=== PATIENT | male | born 1965 | race Caucasian/White ===

== ENCOUNTER 2022-01-09 10:12 | Observation (INO) ==
[2022-01-09] MEDS ORDERED: METOPROLOL TARTRATE 1 MG/ML VIAL IV STA (11:25)
[2022-01-09] MEDS ORDERED: SODIUM CHLORIDE 0.9% 1000ML 1,000 ML IV ONE (11:25)
[2022-01-09 11:32] LABS: Basophils # (auto) 0.03 K/uL (0-0.2); Basophils % (auto) 0.3 %; Eosinophils # (auto) 0.07 K/uL (0-0.5); Eosinophils % (auto) 0.8 %; Hematocrit (blood only) 44.4 % (42-52); Hemoglobin 15.4 g/dL (14.0-18.0); Immature Granulocytes # (auto) 0.04 K/uL (0.00-0.02); Immature Granulocytes % (auto) 0.5 %; Lymphocytes # (auto) 2.59 K/uL (1.2-3.4); Lymphocytes % (auto) 29.2 %; Mean Corpuscular Hemoglobin 29.8 pg (25-34); Mean Corpuscular Hgb Conc 34.7 g/dL (32-36); Mean Corpuscular Volume 85.9 fL (80-100); Mean Platelet Volume 10.6 fL (7.4-10.4); Monocytes # (auto) 0.63 K/uL (0.11-0.59); Monocytes % (auto) 7.1 %; Neutrophils # (auto) 5.52 K/uL (1.4-6.5); Neutrophils % (auto) 62.1 %; Platelet Count 273 K/uL (130-400); RDW Coefficient of Variation 13.1 % (11.5-14.5); RDW Standard Deviation 41.1 fL (36.4-46.3); Red Blood Count 5.17 M/uL (4.7-6.1); White Blood Count 8.88 K/uL (4.8-10.8)
[2022-01-09 12:01] LABS: D Dimer 320 ug/L FEU (0-500); Partial Thromboplastin Ratio 0.8; Partial Thromboplastin Time 22.9 Seconds (21.0-31.0); Prothrombin Time 10.5 Seconds (9.0-12.0)
--- NOTE | 2022-01-09 12:03 | XRay Report ---
XR chest 1V portable HISTORY: Cough with midsternal Chest Pain COMPARISON: Chest 08/22/2015. FINDINGS: There are low lung volumes, unchanged. No pneumothorax. No pleural effusions. The correct s ilhouette remains top normal in size. Small left basilar linear densities favor subsegmental atelecta sis or scarring. Otherwise, no focal lung consolidations to suggest pneumonia. No evidence for pulmon rosemary edema. IMPRESSION: No significant change compared to the prior study. No acute process. ACT 112: Negative or not required by law. Electronically signed by: Eduardo Ruano M.D. 01/09/2022 12:02 PM
[2022-01-09 12:09] LABS: Troponin I High Sensitivity 8.1 pg/ml (0-20)
[2022-01-09 12:21] LABS: Albumin Globulin Ratio 1.1 (0.9-2); Albumin Level 4.2 gm/dl (3.4-5.0); BUN Creatinine Ratio 10.3 (10-20); Bilirubin,Total 0.8 mg/dl (0.2-1.0); Calcium 9.9 mg/dl (8.5-10.1); Creatinine Clr Calc Pharmacy 74.2 ml/min; Est GFR (African American) 73.9 ml/min; Est GFR (Non-African American) 63.8 ml/min; Globulin 3.7 gm/dl (2.5-4.0); Potassium 3.4 mmol/L (3.5-5.1); Total Protein 7.9 gm/dl (6.0-8.3)
--- NOTE | 2022-01-09 15:02 | History & Physical Report ---
Date of Service January 09, 2022 Assessment & Plan (1) Chest pain: Plan: chest pain with a feeling of pressure with presentation of afib RVR, will have serial enzymes, initial trop negative and ecg with afib not acs, resting echo today stress 01/10/22 if enzymes are negative and agreed on by daytime team Personally spoke to cardiology if enzymes go up consider cardiology consult for interventional cardiac catheterization continue aspirin lipids in am patient typically takes Zocor 20 which was not initially on his med list risk factors of htn (2) Atrial fibrillation: Plan: seems to have converted to nsr on er will need workup for chest pain although the hear rates of 132 documented are close to the 140 rate which would be 85% of Max predicted heart rate of 220-age. will stay po metoprolol and hold losartan consider anticoagulation once acs has been ruled out so as not to complicate anticoagulation if left heart cath is required (3) Hypertension: Plan: typically on losartan hctz, these are held in favor of metoprolol Plan: heparin for dvt prevention History of Present Illness Primary Care Provider: Pam Fields 56-year-old male presents in atrial fibrillation rapid ventricular response. This is with the patient being aware that his heart was racing or palpitating. He has been very fatigued over the last 2 weeks yesterday 1 day prior to admi ssion he was so fatigued he did lay down on his cool garage floor the middle of the day as he felt extremely lightheaded and had paresthesias to his arms and legs. He did not have any nausea and he did have chest pressure associate with a rapid heart rate and palpitations. He says for 2 weeks has been feeling decreased energy and rapid heart rate but has been fatigue since he had COVID 1 year ago and he had pneumonia 1 month ago. Patient has no family history of cardiac disease is not smoke daily and has not smoked for some time he does chew occasionally occasionally uses alcohol and he is a family history of cerebrovascular disease but no family history of cardiac disease In the emergency department as mentioned he was atrial fibrillation and converted to sinus rhythm with 1 dose of metoprolol 5. His initial troponin was unremarkable Allergies Allergy/AdvReac Type Severity Reaction Status Date / Time No Known Allergies Allergy Verified 01/09/22 15:07 Home Medications Medication Instructions Recorded Confirmed Type hydrochlorothiazide 25 mg tablet 25 mg PO QAM 06/23/19 07/02/19 History atorvastatin 20 mg tablet 20 mg PO HS 01/09/22 01/09/22 History cholecalciferol (vitamin D3) 25 25 mcg PO DAILY 01/09/22 01/09/22 History mcg (1,000 unit) capsule (Vitamin D3) losartan 100 mg tablet 50 mg PO DAILY 01/09/22 01/09/22 History Past Med/Surg History Medical History (Updated 01/09/22 @ 14:57 by Deni Chavez MD) Hyperlipidemia Hypertension Family History Other Cerebral aneurysm Social History Smoking Status: Never smoker Feels Safe at Home: Yes Review of Systems Review of Systems: Mild distress and moderate fatigue no headache, no visual changes no speech or swallowing issues Patient complains of feeling of chest pressure like something sitting on his chest, and palpitations. no shortness of breath, cough or wheezes no abdominal pain, nausea or vomiting, diarrhea or constipation no dysuria, hematuria or frequency no focal joint pain or swelling no back pain, CVA tenderness or radicular pain no bruising, bleeding or rashes no focal signs of weakness or numbness or altered sensation currently without symptoms but did have paresthesias to the legs and arms no complaints of anxiety or depression.. Physical Exam Physical Exam: The patient appeared well nourished and normally developed. Vital signs as documented. Head exam is normocephalic atraumatic Neck is without JVD, thyromegaly, or carotid bruits. Lungs are clear to auscultation, no focal loss of breath sounds Cardiac exam, Rhythm is regular.. No murmurs, rubs or gallops. Abdominal exam reveals normal bowel sounds, soft non tender, no masses Extremities are nonedematous and both pedal pulses are present Neurologic exam is alert and oriented, no focal loss of strength or sensation Skin is without bruises or rashes Psychologically is without concerns for anxiety or depression.. Results & Data Results & Data ([facility]) Vital Signs (Past 12 Hours) Vital Signs Temp Pulse Resp BP Pulse Ox 01/09/22 12:30 69 18 109/85 97 01/09/22 12:00 76 22 109/83 96 01/09/22 11:30 88 19 114/80 94 01/09/22 11:00 103 H 20 118/77 90 01/09/22 10:14 98.4 F 132 H 16 145/90 H 97 Diagnostic Findings Chest X-Ray 01/09/22 11:07 XR chest 1V portable HISTORY: Cough with midsternal Chest Pain COMPARISON: Chest 08/22/2015. FINDINGS: There are low lung volumes, unchanged. No pneumothorax. No pleural effusions. The correct silhouette remains top normal in size. Small left basilar linear densities favor subsegmental atelectasis or scarring. Otherwise, no focal lung consolidations to suggest pneumonia. No evidence for pulmonary edema. IMPRESSION: No significant change compared to the prior study. No acute process. ACT 112: Negative or not required by law. Electronically signed by: Eduardo Ruano M.D. 01/09/2022 12:02 PM ECG Additional Comments: EKG shows normal sinus rhythm with rapid ventricular response normal ST or T wave changes Code Status & VTE Plan VTE Prophylaxis Plan VTE Prophylaxis will be ordered: Yes PG Care Time/CCT Total # of Minutes Spent Total Time Spent with Patient: Total time spent is greater than 50% in coordination of care (as documented) at patient's floor/unit and/or counseling patient: Coding Level of Care Code INT OBSERVATION CARE 70M LVL 3 Diagnoses Chest pain R07.9 Atrial fibrillation I48.91 Hypertension I10
--- NOTE | 2022-01-09 15:33 | Electrocardiogram Report ---
Test Reason : Blood Pressure : / mmHG Vent. Rate : 117 BPM Atrial Rate : 131 BPM P-R Int : 000 ms QRS Dur : 098 ms QT Int : 318 ms P-R-T Axes : 000 093 015 degrees QTc Int : 443 ms Poor data quality, interpretation may be adversely affected Normal sinus rhythm with frequent , and consecutive Premature atrial complexes Rightward axis Abnormal ECG When compared with ECG of 23-JUN-2019 10:14, Premature atrial complexes now present Confirmed by Mateus Sánchez ([id number]) on 01/09/2022 3:32:56 PM Referred By: REFERRED SELF Confirmed By:Mateus Sánchez
[2022-01-09] MEDS ORDERED: ALUMINUM/MAGNESIUM SUSP 30 ML UDC PO PRN (16:44)
[2022-01-09] MEDS ORDERED: oxyCODONE HCL IR 5 MG TAB (IMMEDIATE RELEASE) PO PRN (16:44)
[2022-01-09] MEDS ORDERED: NITROGLYCERIN SL 0.4 MG/TAB TAB SL PRN (16:44)
[2022-01-09] MEDS ORDERED: ONDANSETRON INJ 2 MG/ML 2 ML VIAL IV PRN (16:44)
[2022-01-09] MEDS ORDERED: ACETAMINOPHEN 325 MG TAB PO PRN (16:44)
[2022-01-09] MEDS ORDERED: MoRPHine SULFATE 2 MG/ML CARP IV PRN (16:44)
[2022-01-09] MEDS ORDERED: METOPROLOL TARTRATE 1 MG/ML VIAL IV PRN (17:37)
[2022-01-09] MEDS ORDERED: Heparin IV Adult Wt-Based Standard WITH Bolus Protocol IV STA (17:43)
--- NOTE | 2022-01-09 18:31 | Emergency Department Note ---
History of Present Illness General Chief Complaint: Chest Pain Time Seen by Provider: 01/09/22 11:04 History of Present Illness Provider Complaint: chest pain Onset (ago): week(s) Onset (Weeks): 2 Duration: intermittent and now resolved Onset: during exertion Pain Location: substernal and left chest Pain Radiation: none Severity: moderate Current Pain Intensity: 4 Quality: + heaviness (pressure) Relieved By: + nitroglycerin Exacerbated By: + exertion Context: no recent illness, no recent surgery, no recent immobilization, no recent travel, no trauma/injury or no history of DVT/PE Associated symptoms: + dyspnea; no vomiting, no diaphoresis, no syncope, no palpitations, no fever, no cough or no leg swelling Treatments prior to arrival: aspirin and nitroglycerin Home Medications Medication Instructions Recorded Confirmed Type hydrochlorothiazide 25 mg tablet 25 mg PO QAM 06/23/19 01/09/22 History atorvastatin 20 mg tablet 20 mg PO HS 01/09/22 01/09/22 History cholecalciferol (vitamin D3) 25 25 mcg PO DAILY 01/09/22 01/09/22 History mcg (1,000 unit) capsule (Vitamin D3) losartan 100 mg tablet 50 mg PO DAILY 01/09/22 01/09/22 History Allergies Allergy/AdvReac Type Severity Reaction Status Date / Time No Known Allergies Allergy Verified 01/09/22 15:07 Past Med/Surg History Medical History (Updated 01/09/22 @ 19:07 by Ezequiel Ferrari) Hyperlipidemia Hypertension No pertinent family history No pertinent past medical history Family History Other Cerebral aneurysm Social History Smoking Status: Former smoker Second Hand Exposure: No; Do You Dip or Chew Tobacco: Yes; Hx Alcohol Use: Yes Alcohol type: beer Hx Substance Use: No Preferred Language: Jamaican Communication Ability: Effective Creative Strategist Required: No Beliefs That Will Affect Care: None Current Living Situation: Spouse Other Information That Helps Us Care for You: No Feels Safe at Home: Yes Safety Concerns: Feels Safe At This Time Assistive Devices: None Physical Exam Vital Signs Vital Signs - 24 hr 01/09/22 10:14 01/09/22 11:00 01/09/22 11:30 Temperature 36.9 C Temperature Source Oral Pulse Rate 132 H 103 H 88 Pulse Rate from SpO2 Sensor 87 Respiratory Rate 16 20 19 Respiratory Depth Normal Blood Pressure 145/90 H 118/77 114/80 Blood Pressure Mean 108 90 91 Blood Pressure Position Sitting Pulse Oximetry 97 90 94 Oxygen Delivery Method Room Air Sepsis Recent Fever Within 48 Hours No Sepsis New/Unexplained Change in Mental Status No Sepsis Action Taken by Nursing No Action Required 01/09/22 12:00 01/09/22 12:30 Temperature Temperature Source Pulse Rate 76 69 Pulse Rate from SpO2 Sensor 77 72 Respiratory Rate 22 18 Respiratory Depth Blood Pressure 109/83 109/85 Blood Pressure Mean 91 93 Blood Pressure Position Pulse Oximetry 96 97 Oxygen Delivery Method Room Air Room Air Sepsis Recent Fever Within 48 Hours Sepsis New/Unexplained Change in Mental Status Sepsis Action Taken by Nursing Physical Exam GENERAL: He is oriented to person, place, and time. He appears well-developed and well-nourished. He does not appear distressed. HENT: Exam performed. - Head: Normocephalic and atraumatic. - Right Ear: External ear normal. No mastoid tenderness. - Left Ear: External ear normal. No mastoid tenderness. - Mouth/Throat: The oropharynx is clear and moist. No trismus in the jaw. No dental abscesses or uvula swelling. No oropharyngeal exudate or tonsillar abscesses. EYES: Conjunctivae and EOM are normal. Pupils are equal, round, and reactive to light. Right eye exhibits no discharge. Left eye exhibits no discharge. No scleral icterus. NECK: Normal range of motion. Neck supple. No JVD present. No spinous process tenderness present. No carotid bruit present. No rigidity. No tracheal deviation and normal range of motion present. No Brudzinski's sign and no Kernig's sign noted. CV: Tachycardic rate, irregular rhythm, normal heart sounds and intact distal pulses. There is no peripheral edema. Palpable radial pulses bue. PULM/CHEST: Effort normal and breath sounds normal. No respiratory distress. No stridor. He has no wheezes. He has no rales. - Chest Wall: He exhibits no tenderness. ABD: The abdomen is soft. Bowel sounds are normal. He has no distension. No mass is present. There is no tenderness. There is no rebound, no guarding, no Almodovar's sign and no tenderness at McBurney's point. Rovsig negative. MUSC/SKEL: Normal range of motion. There is no peripheral edema, tenderness or deformity. LYMPH: No cervical adenopathy. NEURO: He is alert and oriented to person, place, and time. He has normal strength. No cranial nerve deficit or sensory deficit. Coordination and gait normal. GCS eye subscore is 4. GCS verbal subscore is 5. GCS motor subscore is 6. Cerebellar tests wnl. SKIN: Skin is warm and dry. He is not diaphoretic. PSYCH: He has a normal mood and affect. Behavior is normal. Judgment and thought content normal. Course Course 1104: The patient was evaluated in room B2. A complete history and physical exam was performed Cardiac monitoring: An order was placed for continuous cardiac monitoring. The monitor shows a rate of 110-130 with atrial fibrilation rhythm Patient states he has no history of A. fib. Patient's pressure stable. Patient reports no chest pain after receiving sublingual nitroglycerin. Patient appears to be in new onset atrial fibrillation, patient will be given metoprolol 5 mg IV push. 1215: Patient's ventricular rate has slowed down and he now appears to be in a sinus arrhythmia. 1440: Vital signs stable. Patient appears to be in sinus rhythm now. Labs including troponin and D-dimer negative. Given the patient's age, history of high cholesterol, history of hypertension, and his new onset atrial fibrillation the patient will be admitted to the hospitalist team for rule out ACS. Discussed case with Dr. Joel agreed to evaluate the patient for admission. Administered Medications Discontinued Medications Sodium Chloride (Nss 1000ml) 1,000 mls @ 999 mls/hr IV .Q1H1M ONE Stop: 01/09/22 12:25 Last Infusion: 01/09/22 12:40 Dose: 0 mls/hr Documented by: [id number] Admin: 01/09/22 11:31 Dose: 999 mls/hr Documented by: [id number] Metoprolol Tartrate (Metoprolol Tartrate 1 Mg/Ml Vial) 5 mg IV NOW STA Stop: 01/09/22 11:26 Last Admin: 01/09/22 11:31 Dose: 5 mg Documented by: [id number] Medical Decision Making Laboratory Data Result diagrams: 01/09/22 10:18 01/09/22 10:18 Labs: Lab Results 01/09/22 01/09/22 01/09/22 Range/Units 10:18 10:18 10:18 WBC 8.88 (4.8-10.8) K/uL RBC 5.17 (4.7-6.1) M/uL Hgb 15.4 (14.0-18.0) g/dL Hct 44.4 (42-52) % MCV 85.9 (80-100) fL MCH 29.8 (25-34) pg MCHC 34.7 (32-36) g/dL RDW Std Deviation 41.1 (36.4-46.3) fL RDW Coeff of Suni 13.1 (11.5-14.5) % Plt Count 273 (130-400) K/uL MPV 10.6 H (7.4-10.4) fL Immature Gran % (Auto) 0.5 % Neut % (Auto) 62.1 % Lymph % (Auto) 29.2 % Fleming % (Auto) 7.1 % Eos % (Auto) 0.8 % Baso % (Auto) 0.3 % Neut # (Auto) 5.52 (1.4-6.5) K/uL Lymph # (Auto) 2.59 (1.2-3.4) K/uL Fleming # (Auto) 0.63 H (0.11-0.59) K/uL Eos # (Auto) 0.07 (0-0.5) K/uL Baso # (Auto) 0.03 (0-0.2) K/uL Immature Gran # (Auto) 0.04 H (0.00-0.02) K/uL PT 10.5 (9.0-12.0) Seconds INR 1.0 (0.9-1.1) APTT 22.9 (21.0-31.0) Seconds PTT Ratio 0.8 D-Dimer 320 (0-500) ug/L FEU Sodium 137 (136-145) mmol/L Potassium 3.4 L (3.5-5.1) mmol/L Chloride 102 (98-107) mmol/L Carbon Dioxide 26 (21-32) mmol/L Anion Gap 9 (3-11) BUN 13 (6-23) mg/dl Creatinine 1.26 (0.6-1.4) mg/dl Est Cr Clr Drug Dosing 74.2 ml/min Est GFR ( Amer) 73.9 ml/min Est GFR (Non-Af Amer) 63.8 ml/min BUN/Creatinine Ratio 10.3 (10-20) Glucose 152 H (70-99(Fasting)) mg/dl Calcium 9.9 (8.5-10.1) mg/dl Magnesium (1.7-2.4) mg/dl Total Bilirubin 0.8 (0.2-1.0) mg/dl AST 31 (13-39) U/L ALT 46 (7-52) U/L Alkaline Phosphatase 61 (34-104) U/L Troponin I High Sens 8.1 (0-20) pg/ml Total Protein 7.9 (6.0-8.3) gm/dl Albumin 4.2 (3.4-5.0) gm/dl Globulin 3.7 (2.5-4.0) gm/dl Albumin/Globulin Ratio 1.1 (0.9-2) Lipase 126 H (11-82) U/L SARS-CoV-2, RNA, NAAT (NEGATIVE) 01/09/22 01/09/22 Range/Units 10:18 14:00 WBC (4.8-10.8) K/uL RBC (4.7-6.1) M/uL Hgb (14.0-18.0) g/dL Hct (42-52) % MCV (80-100) fL MCH (25-34) pg MCHC (32-36) g/dL RDW Std Deviation (36.4-46.3) fL RDW Coeff of Suni (11.5-14.5) % Plt Count (130-400) K/uL MPV (7.4-10.4) fL Immature Gran % (Auto) % Neut % (Auto) % Lymph % (Auto) % Fleming % (Auto) % Eos % (Auto) % Baso % (Auto) % Neut # (Auto) (1.4-6.5) K/uL Lymph # (Auto) (1.2-3.4) K/uL Fleming # (Auto) (0.11-0.59) K/uL Eos # (Auto) (0-0.5) K/uL Baso # (Auto) (0-0.2) K/uL Immature Gran # (Auto) (0.00-0.02) K/uL PT (9.0-12.0) Seconds INR (0.9-1.1) APTT (21.0-31.0) Seconds PTT Ratio D-Dimer (0-500) ug/L FEU Sodium (136-145) mmol/L Potassium (3.5-5.1) mmol/L Chloride (98-107) mmol/L Carbon Dioxide (21-32) mmol/L Anion Gap (3-11) BUN (6-23) mg/dl Creatinine (0.6-1.4) mg/dl Est Cr Clr Drug Dosing ml/min Est GFR ( Amer) ml/min Est GFR (Non-Af Amer) ml/min BUN/Creatinine Ratio (10-20) Glucose (70-99(Fasting)) mg/dl Calcium (8.5-10.1) mg/dl Magnesium 1.8 (1.7-2.4) mg/dl Total Bilirubin (0.2-1.0) mg/dl AST (13-39) U/L ALT (7-52) U/L Alkaline Phosphatase (34-104) U/L Troponin I High Sens (0-20) pg/ml Total Protein (6.0-8.3) gm/dl Albumin (3.4-5.0) gm/dl Globulin (2.5-4.0) gm/dl Albumin/Globulin Ratio (0.9-2) Lipase (11-82) U/L SARS-CoV-2, RNA, NAAT NEGATIVE (NEGATIVE) Imaging Data Chest x-ray: Radiologist's impression: Chest X-Ray 01/09/22 11:07 XR chest 1V portable HISTORY: Cough with midsternal Chest Pain COMPARISON: Chest 08/22/2015. FINDINGS: There are low lung volumes, unchanged. No pneumothorax. No pleural effusions. The correct silhouette remains top normal in size. Small left basilar linear densities favor subsegmental atelectasis or scarring. Otherwise, no focal lung consolidations to suggest pneumonia. No evidence for pulmonary edema. IMPRESSION: No significant change compared to the prior study. No acute process. ACT 112: Negative or not required by law. Electronically signed by: Eduardo Ruano M.D. 01/09/2022 12:02 PM ECG Data Additional Comments: EKG #1 at 1012: Atrial fibrillation with rate of 117. QRS and QTc intervals within normal limits. No ST elevation or ST depression. EKG #2 at 1219 status post metoprolol 5 mg IV push: Sinus arrhythmia with rate of 71. CA QRS and QTc intervals are within normal limits. No ST elevation or ST depression. EKG #3 at 1436: Sinus rhythm with a rate of 95. CA QRS and QTc intervals within normal limits. No ST elevation or ST depression. MDM Narrative 1104: The patient was evaluated in room B2. A complete history and physical exam was performed Cardiac monitoring: An order was placed for continuous cardiac monitoring. The monitor shows a rate of 110-130 with atrial fibrilation rhythm Patient states he has no history of A. fib. Patient's pressure stable. Patient reports no chest pain after receiving sublingual nitroglycerin. Patient appears to be in new onset atrial fibrillation, patient will be given metoprolol 5 mg IV push. 1215: Patient's ventricular rate has slowed down and he now appears to be in a sinus arrhythmia. 1440: Vital signs stable. Patient appears to be in sinus rhythm now. Labs including troponin and D-dimer negative. Given the patient's age, history of high cholesterol, history of hypertension, and his new onset atrial fibrillation the patient will be admitted to the hospitalist team for rule out ACS. Discussed case with Dr. Joel agreed to evaluate the patient for admission. Impression & Plan Chest pain, Atrial fibrillation Discharge Plan Visit Data Chief Complaint: Chest Pain Discharge Problem: Chest pain, Atrial fibrillation Patient Disposition: Admitted As Inpatient Discharge Instructions Interventions: ED Discharge Assessment Last Done: 01/09/22 16:14
[2022-01-09] MEDS ORDERED: HEPARIN SOD (PORCINE) 1000 UNIT/ML IV ONE (19:05)
[2022-01-09] MEDS ORDERED: MAGNESIUM SULFATE / D5W 1 GM/100 ML BAG IV ONE (19:30)
[2022-01-09] MEDS: METOPROLOL TARTRATE 25 MG TAB PO SCH (20:45)
[2022-01-09] MEDS: HEPARIN SODIUM/DEXTROSE 25,000 UNITS/500 ML BAG IV SCH (20:52)
[2022-01-10 03:37] LABS: Hematocrit (blood only) 42.7 % (42-52); Hemoglobin 14.7 g/dL (14.0-18.0); Mean Corpuscular Hemoglobin 29.8 pg (25-34); Mean Corpuscular Hgb Conc 34.4 g/dL (32-36); Mean Corpuscular Volume 86.4 fL (80-100); Platelet Count 251 K/uL (130-400); RDW Coefficient of Variation 13.4 % (11.5-14.5); RDW Standard Deviation 42.4 fL (36.4-46.3); Red Blood Count 4.94 M/uL (4.7-6.1); White Blood Count 9.13 K/uL (4.8-10.8)
[2022-01-10 04:28] LABS: Calcium 9.4 mg/dl (8.5-10.1); Chol HDL Ratio 4.9 (0-5); Creatinine Clr Calc Pharmacy 86.5 ml/min; Est GFR (African American) 89.1 ml/min; Est GFR (Non-African American) 76.9 ml/min; Potassium 3.8 mmol/L (3.5-5.1)
[2022-01-10 04:32] LABS: Partial Thromboplastin Ratio 2.9
[2022-01-10 04:35] LABS: Troponin I High Sensitivity 7.3 pg/ml (0-20)
[2022-01-10 04:37] LABS: Partial Thromboplastin Time 80.4 Seconds (21.0-31.0)
[2022-01-10] MEDS: METOPROLOL TARTRATE 25 MG TAB PO SCH (08:49)
[2022-01-10] MEDS ORDERED: MELOXICAM 7.5 MG TAB PO SCH (09:00)
[2022-01-10] MEDS ORDERED: ASPIRIN 81 MG ECTAB PO SCH (09:00)
[2022-01-10 10:43] LABS: Partial Thromboplastin Ratio 3.3
[2022-01-10 10:46] LABS: Partial Thromboplastin Time 90.2 Seconds (21.0-31.0)
[2022-01-10] MEDS: HEPARIN SODIUM/DEXTROSE 25,000 UNITS/500 ML BAG IV SCH (12:28)
--- NOTE | 2022-01-10 12:38 | Discharge Summary ---
Date of Service January 10, 2022 Admission HPI Per Admitting Provider 56-year-old male presents in atrial fibrillation rapid ventricular response. This is with the patient being aware that his heart was racing or palpitating. He has been very fatigued over the last 2 weeks yesterday 1 day prior to admission he was so fatigued he did lay down on his cool garage floor the middle of the day as he felt extremely lightheaded and had paresthesias to his arms and legs. He did not have any nausea and he did have chest pressure associate with a rapid heart rate and palpitations. He says for 2 weeks has been feeling decreased energy and rapid heart rate but has been fatigue since he had COVID 1 year ago and he had pneumonia 1 month ago. Patient has no family history of cardiac disease is not smoke daily and has not smoked for some time he does chew occasionally occasionally uses alcohol and he is a family history of cerebrovascular disease but no family history of cardiac disease In the emergency department as mentioned he was atrial fibrillation and converted to sinus rhythm with 1 dose of metoprolol 5. His initial troponin was unremarkable Principal Diagnosis Paroxysmal atrial fibrillation with rapid ventricular rate, chest pain Discharge Exam General-alert and oriented x3, no fevers, no chills HEENT-head atraumatic and normocephalic, TMs intact bilaterally, pupils equal and reactive to light, extraocular muscles intact Neck-no lymphadenopathy or thyromegaly, trachea midline Chest-clear to auscultation percussion. No rales wheezing or rhonchi Cardiac-regular rate and rhythm, normal S1 and S2, no murmurs Abdomen-normal bowel sounds, nontender, no hepatosplenomegaly Extremities-no cyanosis, clubbing, or edema Neuro-cranial nerves II through XII intact, motor and sensory function within normal limits, strength symmetrical , no focal deficits Psych-normal affect, normal mood Discharge Data Allergies Allergy/AdvReac Type Severity Reaction Status Date / Time No Known Allergies Allergy Verified 01/09/22 15:07 Consultations 01/09/22 14:05 ED Decision to Admit Stat 01/09/22 17:43 Consult Cardiology Routine Hospital Course (1) Chest pain: No evidence of acute coronary syndrome. He passed his treadmill stress test with no evidence of myocardial ischemia. Case discussed with cardiology. (2) Atrial fibrillation: Converted to normal sinus rhythm. He passed his stress test. Case discussed with cardiology. He will take metoprolol tartrate and Xarelto on an as-needed basis t home if the atrial fibrillation recurs. He will follow-up with cardiology in the office as an outpatient. (3) Hypertension: Takes losartan hctz. Controlled Disposition: Eventual discharge to home. Today, January 10, if cleared by cardiology Total Time Total Time Spent Total Time Spent (In Minutes): 35 minutes Discharge Plan Discharge Items Patient Disposition: Home - Self-Care Reason For Visit: CHEST PAIN Discharge Diagnosis: Atrial fibrillation with rapid ventricular rate, chest pain Activity: Resume your previous activity Non-emergency contact: Primary Care Provider and Hoist Mechanic Call non-emergency contact if: you have any medication questions and your symptoms worsen Follow-up/Referrals: Pam Fields [Primary Care Provider] - Diet: Heart Healthy Addtl Attending Provider Instructions: Take metoprolol and Xarelto as directed if atrial fibrillation recurs. See cardiology in the office as an outpatient Pending Studies at Discharge: No Stand-Alone Forms: [employer], Smoking Cessation Medications and DC Order Prescriptions: New metoprolol tartrate 25 mg Tablet See Rx Instructions .ROUTE .COMPLEX Qty: 30 RF: 0 Xarelto 20 mg tablet See Rx Instructions .ROUTE .COMPLEX Qty: 7 RF: 0 Continued hydrochlorothiazide 25 mg tablet 25 mg PO QAM RF: 0 atorvastatin 20 mg tablet 20 mg PO HS RF: 0 losartan 100 mg tablet 50 mg PO DAILY RF: 0 cholecalciferol (vitamin D3) [Vitamin D3] 25 mcg (1,000 unit) Capsule 25 mcg PO DAILY RF: 0 Discharge Orders: Discharge Order (Routine); Ordered 01/10/22 Ordered By: Tony Mackey Admission Data Admit Date/Time: 01/09/22 14:52 Attending Provider: Tony Mackey Admit Provider: Deni Chavez Primary Care Provider: Pam Fields Other Providers: Deni Chavez ; Mateus Sánchez Coding Level of Care Code D/C DAY MANAGEMENT >30 MINS Diagnoses Chest pain R07.9 Chest pain type: unspecified Atrial fibrillation I48.91 Atrial fibrillation type: unspecified Hypertension I10
--- NOTE | 2022-01-10 12:39 | XCELERA ---
[id number]
--- NOTE | 2022-01-10 13:17 | Cardiology Consultation ---
Date of Consultation January 10, 2022 Assessment & Plan (1) PAF (paroxysmal atrial fibrillation): -remains in normal sinus rhythm currently. -no obvious etiology to his atrial dysrhythmia. -sinus bradycardia, Wenckebach, and blocked PACs seen on telemetry. -consider converting metoprolol tartrate to p.r.n. dosing. -CHADSVasc score of 1 places him on the borderline for long-term anticoagulation. -would use Xarelto 20 mg as a pill in the pocket. -stable for hospital discharge. (2) Hypertension: -would restart losartan and hydrochlorothiazide. (3) Hyperlipidemia: -resume simvastatin. History of Present Illness Attending Physician: Tony Mackey MD History of Present Illness Mr. Kaye is a 56-year-old male admitted yesterday with new onset atrial fibrillation. This consultation was ordered to assistance cardiac management. The patient was in his usual state of health until approximately 2 weeks prior to presentation. At that time, patient began to note significant fatigue. On the day prior to presentation, the patient works vigorously around his home and property. By the end of the day, he had no energy and had delayed down on his school garage floor before going into the house. On the day of presentation, the patient was working at [employer]. He had the abrupt onset of significant palpitations with a substernal chest heaviness. 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 On arrival here, patient was in atrial fibrillation with a rapid ventricular response. He spontaneously converted to sinus rhythm following a dose of intravenous metoprolol tartrate. He did have a brief recurrent episode during the evening hours following his hospitalization. The patient has never known of a cardiac event. He has never had a cardiac catheterization or stress test. Past medical and surgical history 1. Hypertension 2. 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 No tobacco Occasional alcohol Family history Mother at 74 from renal failure. Father is 79 and healthy Review of systems A 10 point review systems was undertaken and negative except for that described above. Allergies Allergy/AdvReac Type Severity Reaction Status Date / Time No Known Allergies Allergy Verified 01/09/22 15:07 Home Medications Medication Instructions Recorded Confirmed Type hydrochlorothiazide 25 mg tablet 25 mg PO QAM 06/23/19 01/09/22 History atorvastatin 20 mg tablet 20 mg PO HS 01/09/22 01/09/22 History cholecalciferol (vitamin D3) 25 25 mcg PO DAILY 01/09/22 01/09/22 History mcg (1,000 unit) capsule (Vitamin D3) losartan 100 mg tablet 50 mg PO DAILY 01/09/22 01/09/22 History metoprolol tartrate 25 mg tablet See Rx Instructions .ROUTE 01/10/22 Rx .COMPLEX #30 tab rivaroxaban 20 mg tablet (Xarelto) See Rx Instructions .ROUTE 01/10/22 Rx .COMPLEX #7 tab Patient History Medical History (Updated 01/10/22 @ 13:13 by Mateus Sánchez MD) Hyperlipidemia Hypertension No pertinent family history No pertinent past medical history Family History Other Cerebral aneurysm Social History Smoking Status: Former smoker Second Hand Exposure: No; Do You Dip or Chew Tobacco: Yes; Hx Alcohol Use: Yes Alcohol type: beer Hx Substance Use: No Preferred Language: Marshallese Communication Ability: Effective Iphone Developer Required: No Beliefs That Will Affect Care: None Current Living Situation: Spouse Other Information That Helps Us Care for You: No Feels Safe at Home: Yes Safety Concerns: Feels Safe At This Time Assistive Devices: None Physical Exam Physical Exam: In general this is a well-developed well-nourished white male in no acute distress. HEENT exam is negative. Neck is supple with full carotid upstrokes. There are no carotid bruits. Jugular venous pressure is flat at 90. There is no thyromegaly. Cardiovascular exam reveals a regular rhythm with a normal S1 and S2. No S3, S4, or murmurs are noted. Lungs are clear without rales, rhonchi, or wheezes. Abdomen is soft and nontender without bruits. Extremities reveal intact radial artery and posterior tibial pulses bilaterally. There is no peripheral edema. Results & Data ([facility]) Vital Signs (Past 12 Hours) Vital Signs Temp Pulse Pulse Resp BP Pulse Ox 01/10/22 12:46 36.3 C L 67 19 145/95 H 97 01/10/22 12:13 36.3 C L 67 19 145/95 H 97 01/10/22 08:08 36.4 C L 61 18 127/83 98 01/10/22 07:21 64 01/10/22 03:29 36.4 C L 62 18 126/90 97 Laboratory Results CBC notes hemoglobin 14.7, hematocrit 42.7, white count 9.13, and platelet count [id number]. Electrolytes note a sodium of 138, potassium 3.8, chloride 104, bicarb 20, BUN 14, creatinine 1.08, and glucose of 92. Magnesium level is normal at 2.0. High sensitivity troponin was 8.1 with follow-up values of 8.5 and 7.3. Diagnostic Findings Initial EKG noted atrial fibrillation with a rapid ventricular response. Follow-up tracing noted sinus rhythm with frequent PACs and low voltage throughout. Echocardiogram noted normal left ventricular systolic function without wall motion abnormalities. There is borderline LVH and mild tricuspid regurgitation. Chest x-ray shows borderline cardiomegaly. PG Care Time/CCT Total # of Minutes Spent Total Time Spent with Patient: Total time spent is greater than 50% in coordination of care (as documented) at patient's floor/unit and/or counseling patient: Coding Level of Care Code 86127 Office/OBS Consult Lvl 4 Diagnoses PAF (paroxysmal atrial fibrillation) I48.0 Hypertension I10 Hyperlipidemia E78.5
--- NOTE | 2022-01-10 14:39 | Electrocardiogram Report ---
Test Reason : Blood Pressure : / mmHG Vent. Rate : 071 BPM Atrial Rate : 083 BPM P-R Int : 192 ms QRS Dur : 094 ms QT Int : 396 ms P-R-T Axes : 055 069 040 degrees QTc Int : 430 ms Sinus rhythm with frequent Premature ventricular complexes Low voltage QRS Borderline ECG When compared with ECG of 09-JAN-2022 10:12, Vent. rate has decreased BY 46 BPM Confirmed by Mateus Sánchez ([id number]) on 01/10/2022 2:39:02 PM Referred By: REFERRED SELF Confirmed By:Mateus Sánchez
--- NOTE | 2022-01-10 14:40 | Electrocardiogram Report ---
Test Reason : Blood Pressure : / mmHG Vent. Rate : 095 BPM Atrial Rate : 095 BPM P-R Int : 194 ms QRS Dur : 086 ms QT Int : 394 ms P-R-T Axes : 025 083 050 degrees QTc Int : 495 ms Sinus rhythm with Premature supraventricular complexes Low voltage QRS Nonspecific ST abnormality Prolonged QT Abnormal ECG When compared with ECG of 09-JAN-2022 12:19, (unconfirmed) Premature supraventricular complexes are now Present QT has lengthened Confirmed by Mateus Sánchez ([id number]) on 01/10/2022 2:39:54 PM Referred By: REFERRED SELF Confirmed By:Mateus Sánchez
--- NOTE | 2022-01-10 14:42 | Electrocardiogram Report ---
Test Reason : Blood Pressure : / mmHG Vent. Rate : 084 BPM Atrial Rate : 087 BPM P-R Int : 000 ms QRS Dur : 100 ms QT Int : 374 ms P-R-T Axes : 053 070 031 degrees QTc Int : 441 ms Normal sinus rhythm with occasional Premature atrial complexes Low voltage QRS Borderline ECG When compared with ECG of 09-JAN-2022 14:36, (unconfirmed) QT has shortened Confirmed by Mateus Sánchez ([id number]) on 01/10/2022 2:42:35 PM Referred By: REFERRED SELF Confirmed By:Mateus Sánchez
--- NOTE | 2022-01-10 14:53 | Electrocardiogram Report ---
Test Reason : Blood Pressure : / mmHG Vent. Rate : 062 BPM Atrial Rate : 062 BPM P-R Int : 186 ms QRS Dur : 100 ms QT Int : 434 ms P-R-T Axes : 059 084 065 degrees QTc Int : 440 ms Normal sinus rhythm Normal ECG When compared with ECG of 09-JAN-2022 17:36, (unconfirmed) Previous ECG has undetermined rhythm, needs review Confirmed by Mateus Sánchez ([id number]) on 01/10/2022 2:53:26 PM Referred By: REFERRED SELF Confirmed By:Mateus Sánchez
== END 2022-01-10 13:41 | disposition home or self-care (01) ==
LOC: ED 10:12 → 2S 10:12 → SUATTDRO 14:52 → 2S 16:14